=== PATIENT | male | born 1980 | race Hispanic/Latino ===

== ENCOUNTER 2021-04-25 19:07 | Emergency (ER) | payer SELFPAY ==
[~2021-04-25] VITALS: Ht 165.1 cm; Wt 81.6 kg
[2021-04-25 19:17] VITALS: BP 148/72
[2021-04-25] MEDS ORDERED: NAPR-1180 PO (20:08)
[2021-04-25] MEDS ORDERED: HYDROCODONE/ACETAMINOPHEN 10/325 MG TAB PO ONE (20:30)
== END 2021-04-25 20:21 | disposition home or self-care (01) ==
LOC: EDH 19:07
DX: S93.601A Unspecified sprain of right foot, initial encounter (principal); S60.221A Contusion of right hand, initial encounter; Z79.1 Long term (current) use of non-steroidal anti-inflammatories (NSAID); X58.XXXA Exposure to other specified factors, initial encounter; Y93.89 Activity, other specified; Y92.89 Other specified places as the place of occurrence of the external cause; Y99.8 Other external cause status
CPT/HCPCS: 73130; 73620